=== PATIENT | female | born 1935 | race Caucasian/White ===

== ENCOUNTER 2019-05-17 20:59 | Emergency (ER) | payer MEDICARE, MEDICAID ==
[~2019-05-17] VITALS: Ht 160 cm; Wt 56.7 kg
--- NOTE | 2019-05-17 21:20 | NUR ---
ED Nurse Note: Pt brought in by family c/o allergic reaction, per granddaughter statement, pt took clindamycin for dental procedure and started having rash all over her body. noted redness on her chest area. no sx resp distress at this time, vss, will cont monitor.
[2019-05-17] MEDS ORDERED: Solu-MEDROL 125mg Inj IVP ONE (21:30)
[2019-05-17] MEDS ORDERED: DiphenhydrAMINE 50mg/ml Inj IVP ONE (21:30)
--- NOTE | 2019-05-17 21:50 | NUR ---
ED Nurse Note: pt provided w/ extra warm blanket for comfort, vss, safety precautions in place, advised family/pt to notify staff if needed assist.
[2019-05-17 22:06] LABS: BASOPHILS % (AUTO) 0.7 % (0.0-2.0); EOSINOPHILS % (AUTO) 3.9 % (0.0-3.0); HEMATOCRIT 36.8 % (37.0-47.0); HEMOGLOBIN 12.3 G/DL (12.0-16.0); LYMPHOCYTES % (AUTO) 17.5 % (20.0-45.0); MEAN CORPUSCULAR VOLUME 85 FL (80-99); MONOCYTES % (AUTO) 6.8 % (1.0-10.0); NEUTROPHILS % (AUTO) 71.1 % (45.0-75.0); PLATELET COUNT 181 K/UL (150-450); RED BLOOD COUNT 4.32 M/UL (4.20-5.40); RED CELL DISTRIBUTION WIDTH 11.4 % (11.6-14.8); WHITE BLOOD COUNT 9.9 K/UL (4.8-10.8)
[2019-05-17 22:08] LABS: ANION GAP 5 mmol/L (5-15); BLOOD UREA NITROGEN 21 mg/dL (7-18); CALCIUM 8.9 MG/DL (8.5-10.1); CARBON DIOXIDE 27 MMOL/L (21-32); CHLORIDE 103 MMOL/L (98-107); CREATININE 1.4 MG/DL (0.55-1.30); POTASSIUM 3.9 MMOL/L (3.5-5.1); SODIUM 135 MMOL/L (136-145)
[2019-05-17] MEDS ORDERED: BENADRYL25 MG ORAL (22:13)
[2019-05-17] MEDS ORDERED: PREDNISONE20 MG ORAL (22:13)
--- NOTE | 2019-05-17 22:13 | Emergency Room Report ---
History of Present Illness General Chief Complaint: Skin Rash/Abscess Source: Family Member, Medical Record Present Illness HPI This is an 83-year-old female with history of diabetes hypertension. She presents with chief complaint of rash. She has some dental pain about a week ago. She was started on clindamycin and after a few days she broke out in a rash. Also having chills and shaking. She stopped it yesterday. She was switched to azithromycin. She no longer have any dental pain. No shortness of breath. No fever. Has chills. Denies any respiratory issue. No wheezing. No tongue edema. She been taking Benadryl but only twice a day. Allergies: Coded Allergies: PENICILLINS (Verified Allergy, Unknown, 05/17/19) Patient History Past Medical History: see triage record, old chart reviewed, DM, HTN Past Surgical History: other Pertinent Family History: none Social History: Denies: smoking Now: No : 6 Para: 6 Immunizations: other Reviewed Nursing Documentation: PMH: Agreed; PSxH: Agreed Nursing Documentation-PMH Hx Hypertension: Yes Hx Diabetes: Yes Review of Systems Eye: Denies: eye pain, blurred vision ENT: Denies: ear pain, nose congestion, throat swelling Respiratory: Denies: cough, shortness of breath Cardiovascular: Denies: chest pain, palpitations Gastrointestinal: Denies: abdominal pain, diarrhea, nausea, vomiting Musculoskeletal: Denies: back pain, joint pain Skin: Reports: rash Neurological: Denies: headache, numbness Endocrine: Denies: increased thirst, increased urine Hematologic/Lymphatic: Denies: easy bruising All Other Systems: negative except mentioned in HPI Physical Exam Vital Signs Date Time Temp Pulse Resp B/P (MAP) Pulse Ox O2 Delivery O2 Flow Rate FiO2 05/17/19 21:07 97.5 80 17 150/82 (104) 94 Room Air Vitals with high blood pressure Sp02 EP Interpretation: reviewed, normal General Appearance: well appearing, no apparent distress, alert Head: normocephalic, atraumatic Eyes: bilateral eye PERRL, bilateral eye EOMI ENT: hearing grossly normal, normal pharynx Neck: full range of motion, supple, no meningismus Respiratory: chest non-tender, lungs clear, normal breath sounds Cardiovascular #1: regular rate, rhythm, no murmur Gastrointestinal: normal bowel sounds, non tender, no mass, no organomegaly, no bruit, non-distended Musculoskeletal: back normal, gait/station normal, normal range of motion Neurologic: alert, oriented x3 Psychiatric: mood/affect normal Skin: other - Diffuse hyperemia of her skin Medical Decision Making Diagnostic Impression: Primary Impression: Allergic reaction caused by a drug Qualified Codes: T78.40XA - Allergy, unspecified, initial encounter ER Course Patient with allergic reaction to clindamycin. No evidence of Patrick-Toño syndrome. No evidence of anaphylaxis or respiratory issue. Will discharge home with Benadryl and steroid. Better after IV medication. Last Vital Signs Date Time Temp Pulse Resp B/P (MAP) Pulse Ox O2 Delivery O2 Flow Rate FiO2 05/17/19 21:07 97.5 80 17 150/82 (104) 94 Room Air Status: improved Disposition: HOME, SELF-CARE Condition: Stable Scripts Diphenhydramine Hcl* (BENADRYL*) 25 Mg Capsule 50 MG ORAL Q6H PRN for Itching, #30 CAP Prov: Prakash Stroud MD 05/17/19 Prednisone* (PREDNISONE*) 20 Mg Tablet 20 MG ORAL DAILY, #5 TAB Prov: Prakash Stroud MD 05/17/19 Additional Instructions: Follow-up with your doctor in 7 days. Return if symptoms worsen. Prakash Stroud MD May 17, 2019 22:13
[2019-05-17 22:15] VITALS: BP 147/85
[2019-05-17 22:45] VITALS: BP 133/75
--- NOTE | 2019-05-17 22:45 | NUR ---
ED Nurse Note: pt cleared to be d/c per ERMD, pt discharge and aftercare instruction provided w/prescription, education done via discussion and handout, pt advised to follow up with pcp or return to ed if changes in condition, vss, iv d/c and id removed, pt accompanied by family members, d/c by wheelchair, left w/ all belongings.
== END 2019-05-17 22:45 | disposition home or self-care (01) ==
LOC: EMR 22:20
DX: T78.40XA Allergy, unspecified, initial encounter (principal); X58.XXXA Exposure to other specified factors, initial encounter; Y92.9 Unspecified place or not applicable; I10 Essential (primary) hypertension; E11.9 Type 2 diabetes mellitus without complications; Z88.0 Allergy status to penicillin
CPT/HCPCS: 36415; 80048; 85025; 96374; 96375; 99284; J1200; J2930